=== PATIENT | female | born 1950 ===

== ENCOUNTER 2020-07-19 06:30 | Day surgery (SDC) | payer OTHER ==
[~2020-07-19 06:30] MED LIST: CITALOPRAM HBR20 MG PO; CLONAZEPAM0.5 MG PO; FOSAMAX70 MG PO; LEVOTHYROXINE25 MC2 PO; LUMIGAN2.5 M1 OP
[2020-07-19] MEDS ORDERED: NEURONTIN600 M1 PO (13:45)
[2020-07-19] MEDS ORDERED: COLACE100 MG PO (13:45)
[2020-07-19] MEDS ORDERED: PERCOCET 5-3251 EACH PO (13:45)
== END 2020-07-19 19:40 | disposition home or self-care (01) ==
LOC: CIR.AMB 06:30
PROVIDERS: ATTEND Surgery
DX: K43.0 Incisional hernia with obstruction, without gangrene (principal); Z20.822 Contact with and (suspected) exposure to COVID-19